=== PATIENT | male | born 1985 | race Caucasian/White ===

== ENCOUNTER 2019-11-05 09:51 | Emergency (ER) | payer MEDICAID, OTHER ==
[~2019-11-05] VITALS: Ht 180.3 cm; Wt 72.6 kg
[2019-11-05 12:04] LABS: Urine Bacteria NONE SEEN /hpf (None Seen); Urine Blood Negative /uL (Negative); Urine Mucus FEW (None Seen); Urine Specific Gravity 1.019 (1.001-1.035); Urine WBC <1 /hpf (0 - 3)
[2019-11-05 12:11] LABS: Basophils # (auto) 0.1 10 ^3/uL (0-0.2); Basophils % (auto) 1.4 % (0.0-2.0); Eosinophils # (auto) 0 10 ^3/uL (0-0.8); Eosinophils % (auto) 0.7 % (0.0-7.0); Hemoglobin 15.4 g/dL (13.5-17.5); Lymphocytes # (auto) 1.2 10 ^3/uL (0.4-5.4); Lymphocytes % (auto) 31.2 % (10.0-50.0); Mean Corpuscular Hemoglobin 29.1 pg (28.0-32.0); Mean Corpuscular Hgb Conc. 34.3 g/dL (32.0-36.0); Mean Corpuscular Volume 84.9 fL (80.0-100.0); Monocytes # (auto) 0.2 10 ^3/uL (0-1.3); Neutrophils # (auto) 2.4 10 ^3/uL (1.6-8.6); Neutrophils % (auto) 60.7 % (37.0-80.0); Nucleated Red Blood Cells % 0.1 %; Platelet Count (auto) 247 10^3/uL (140-450); Red Cell Distribution Width 14.6 % (11.8-14.3); White Blood Cell 3.9 10^3/uL (4.4-10.8)
[2019-11-05 12:25] LABS: Alcohol, Urine < 3.0 mg/dL (0-10); Amphetamine Screen, Urine NEGATIVE (NEGATIVE); Barbiturate Scree,Urine NEGATIVE (NEGATIVE); Benzodiazephine Screen, Urine NEGATIVE (NEGATIVE); Cocaine Screen, Urine NEGATIVE (NEGATIVE); Opiate Scree,Urine NEGATIVE (NEGATIVE); Phencyclidine Screen, Urine NEGATIVE (NEGATIVE)
[2019-11-05 12:33] LABS: Acetaminophen < 2.0 ug/mL (10-30); Salicylate < 1.7 mg/dL (2.8-20.0)
[2019-11-05 12:39] LABS: Potassium 4.3 mmol/L (3.5-5.1)
[2019-11-05 12:45] LABS: Albumin 3.8 g/dL (3.4-5.0); BUN/Creatinine Ratio 10.5; Bilirubin, Total 0.5 mg/dL (0.2-1.0); Total Protein 7.3 g/dL (6.4-8.2)
[2019-11-05 13:53] LABS: Cannabinoid Screen, Urine POSITIVE (NEGATIVE)
[2019-11-05] MEDS: LORazepam 0.5 MG TAB PO SCH (22:00)
[2019-11-05] MEDS: OLANZapine 5 MG TAB PO SCH (22:00)
[2019-11-06] MEDS: LORazepam 0.5 MG TAB PO SCH ×2 (09:58→22:23)
[2019-11-06] MEDS: OLANZapine 5 MG TAB PO SCH ×2 (09:58→22:23)
[2019-11-07] MEDS: OLANZapine 5 MG TAB PO SCH ×2 (15:23→22:04)
[2019-11-07] MEDS: LORazepam 0.5 MG TAB PO SCH ×2 (15:23→22:04)
[2019-11-08] MEDS: OLANZapine 5 MG TAB PO SCH (15:43)
[2019-11-08] MEDS: LORazepam 0.5 MG TAB PO SCH (15:43)
[2019-11-09] MEDS: LORazepam 0.5 MG TAB PO SCH ×2 (02:58→16:50)
[2019-11-09] MEDS: OLANZapine 5 MG TAB PO SCH ×2 (02:58→16:50)
[2019-11-10] MEDS: LORazepam 0.5 MG TAB PO SCH (22:00)
[2019-11-10] MEDS: OLANZapine 5 MG TAB PO SCH (22:00)
[2019-11-11] MEDS: LORazepam 0.5 MG TAB PO SCH ×4 (00:18→17:27)
[2019-11-11] MEDS: OLANZapine 5 MG TAB PO SCH ×4 (10:00→22:00)
[2019-11-12] MEDS ORDERED: LORazepam 0.5 MG TAB ONE (00:14)
[2019-11-12] MEDS: LORazepam 0.5 MG TAB PO SCH ×2 (02:39→10:00)
[2019-11-12] MEDS: OLANZapine 5 MG TAB PO SCH ×2 (02:39→10:00)
[2019-11-13] MEDS: LORazepam 0.5 MG TAB PO SCH (20:56)
[2019-11-13] MEDS: OLANZapine 5 MG TAB PO SCH (20:56)
[2019-11-14 08:22] VITALS: BP 91/55
[2019-11-14] MEDS: LORazepam 0.5 MG TAB PO SCH (15:35)
[2019-11-14] MEDS: OLANZapine 5 MG TAB PO SCH (15:35)
== END 2019-11-14 18:10 | disposition home or self-care (01) ==
LOC: ER 09:51 → EDBD 09:51 → ER 11-14 18:10
DX: R45.851 Suicidal ideations (principal); F19.10 Other psychoactive substance abuse, uncomplicated; F17.210 Nicotine dependence, cigarettes, uncomplicated; Z88.0 Allergy status to penicillin
CPT/HCPCS: 36415; 80053; 80307; 80329; 81001; 85025